=== PATIENT | female | born 1970 | race Caucasian/White ===

== ENCOUNTER 2016-09-25 20:33 | Emergency (ER) | payer OTHER ==
[~2016-09-25] VITALS: Ht 175.3 cm; Wt 89.8 kg
[2016-09-25 20:34] VITALS: BP 133/76
[2016-09-25 21:20] LABS: URINE BILIRUBIN NEGATIVE (Negative); URINE BLOOD TRACE (Negative); URINE COLOR YELLOW; URINE GLUCOSE-RANDOM* NEGATIVE (Negative); URINE KETONES NEGATIVE (Negative); URINE NITRITE NEGATIVE (Negative); URINE PROTEIN (DIPSTICK) NEGATIVE (Negative); URINE SPECIFIC GRAVITY >= 1.030 (1.003-1.035); URINE UROBILINOGEN 0.2 E.U./dl (0.2-1.0)
== END 2016-09-25 22:34 | disposition home or self-care (01) ==
LOC: ER 20:33
PROVIDERS: Emergency Medicine
DX: R60.0 Localized edema (principal); M79.605 Pain in left leg; M79.604 Pain in right leg